=== PATIENT | male | born 1980 | race Caucasian/White ===

== ENCOUNTER 2018-09-20 19:23 | Emergency (ER) | payer SELFPAY ==
[~2018-09-20] VITALS: Ht 180.3 cm; Wt 96.6 kg
[2018-09-20 19:32] VITALS: Ht 180.3 cm; Wt 96.6 kg
[2018-09-20 22:10] VITALS: BP 138/77
== END 2018-09-20 22:11 | disposition home or self-care (01) ==
LOC: ED 19:23
DX: J02.9 Acute pharyngitis, unspecified (principal)
CPT/HCPCS: J0561; J1100; J1885

== ENCOUNTER 2018-10-22 21:47 | Emergency (ER) | payer MEDICAID ==
[~2018-10-22] VITALS: Ht 180.3 cm; Wt 96.6 kg
[2018-10-22 22:49] VITALS: Ht 180.3 cm; Wt 96.6 kg
[2018-10-23 02:46] VITALS: BP 124/72
== END 2018-10-23 02:46 | disposition home or self-care (01) ==
LOC: ED 21:47
DX: S63.592A Other specified sprain of left wrist, initial encounter (principal); S39.82XA Other specified injuries of lower back, initial encounter; J20.8 Acute bronchitis due to other specified organisms; E11.9 Type 2 diabetes mellitus without complications; V00.131A Fall from skateboard, initial encounter; Y93.21 Activity, ice skating; Y92.89 Other specified places as the place of occurrence of the external cause; Y99.9 Unspecified external cause status

== ENCOUNTER 2020-06-30 20:08 | Emergency (ER) | payer MEDICAID, SELFPAY ==
[~2020-06-30] VITALS: Ht 180.3 cm; Wt 97.5 kg
[2020-06-30 20:11] VITALS: Ht 180.3 cm; Wt 97.5 kg
[2020-06-30 21:34] VITALS: BP 131/91
== END 2020-06-30 21:34 | disposition home or self-care (01) ==
LOC: ED 20:08
DX: U07.1 COVID-19 (principal); F17.210 Nicotine dependence, cigarettes, uncomplicated
CPT/HCPCS: U0003